=== PATIENT | male | born 1970 | race African-American/Black ===

== ENCOUNTER 2020-06-27 14:22 | Emergency (ER) | payer OTHER ==
[~2020-06-27] VITALS: Ht 190.5 cm; Wt 112.0 kg
[2020-06-27 14:26] VITALS: BP 161/76
[2020-06-27] MEDS ORDERED: IBUPROFEN 800MG TABLET PO ONE (14:30)
[2020-06-27] MEDS ORDERED: TETANUS, DIPHTHERIA, PERTUSSIS VAC/PF 0.5ML (>7YR OLD) IM ONE (14:45)
[2020-06-27] MEDS ORDERED: BACITRACIN ZINC OINT UDPKT TOP ONE (14:45)
[2020-06-27] MEDS ORDERED: LIDOCAINE HCL/PF 1% 10 MG/ML 5ML VIAL IJ ONE (14:45)
== END 2020-06-27 17:45 | disposition home or self-care (01) ==
LOC: ER 14:22
DX: S91.201A Unspecified open wound of right great toe with damage to nail, initial encounter (principal); W22.8XXA Striking against or struck by other objects, initial encounter; Y93.B9 Activity, other involving muscle strengthening exercises; Y92.89 Other specified places as the place of occurrence of the external cause; Z23 Encounter for immunization
CPT/HCPCS: 11730; 73630; 90471; 90715; 99284; J3490; Z7610

== ENCOUNTER 2020-07-25 10:12 | Emergency (ER) | payer OTHER ==
[~2020-07-25] VITALS: Ht 190.5 cm; Wt 114.0 kg
[2020-07-25 10:15] VITALS: BP 153/58
[2020-07-25] MEDS: IBUPROFEN 800MG TABLET PO ONE (10:30)
== END 2020-07-25 12:04 | disposition home or self-care (01) ==
LOC: ER 10:12
DX: M54.89 Other dorsalgia (principal); M25.572 Pain in left ankle and joints of left foot; M25.562 Pain in left knee; M79.89 Other specified soft tissue disorders; Z98.890 Other specified postprocedural states
CPT/HCPCS: 73562; 73610; 93971; 99284

== ENCOUNTER 2025-05-13 09:19 | Emergency (ER) | payer OTHER ==
[~2025-05-13] VITALS: Ht 190.5 cm; Wt 109.0 kg
[2025-05-13 09:33] VITALS: O2SAT 100
[2025-05-13 10:44] LABS: HEMATOCRIT. 46.9 % (42.0-52.0); HEMOGLOBIN. 14.9 g/dL (14.0-18.0); MEAN PLATELET VOLUME 9.5 fl (7.4-10.4); PLATELET 167 x1000/uL (130-400); RED BLOOD CELL COUNT 5.55 mill/uL (4.7-6.1); RED CELL DISTRIBUTION WIDTH 13.8 % (11.6-14.6)
[2025-05-13 11:00] LABS: CREATININE 1.3 mg/dL (0.6-1.3); UREA NITROGEN BLOOD 8 mg/dL (9-23)
[2025-05-13 11:02] LABS: ASPARTATE AMINOTRANSFERASE 16 IU/L (<34); BILIRUBIN DIRECT 0.2 mg/dL (<=3.0); BILIRUBIN TOTAL 0.8 mg/dL (0.1-1.0); PROTEIN TOTAL 6.9 g/dL (6.0-8.3)
[2025-05-13] MEDS ORDERED: METH4TAB95 MT (11:41)
[2025-05-13 12:01] VITALS: BP 124/76; PULSE 89; RESP 18; TEMP 37.8; O2SAT 99
[2025-05-13 12:32] LABS: PLATELET ESTIMATE NORMAL
[2025-05-13 12:36] LABS: BAND% 3.0 % (1.0-6.0); EOSINOPHILS % MANUAL 1.0 % (0.0-5.0); LYMPHOCYTES % MANUAL 12.0 % (20.0-50.0); MONOCYTES % MANUAL 21.0 % (2.0-8.0); NEUTROPHILS % MANUAL 63.0 % (45.0-75.0)
[2025-05-13 12:54] LABS: CLARITY URINE CLEAR (CLEAR); COLOR URINE YELLOW (YELLOW); GLUCOSE URINE NEGATIVE (NEGATIVE); KETONES URINE TRACE (NEGATIVE); LEUKOCYTE ESTERASE URINE NEGATIVE (NEGATIVE); NITRITE URINE NEGATIVE (NEGATIVE); OCCULT BLOOD URINE TRACE (NEGATIVE); PH URINE 5.5 (4.5-8.0); PROTEIN URINE NEGATIVE (NEGATIVE); SPECIFIC GRAVITY URINE 1.024 (1.005-1.030); UROBILINOGEN URINE 1.0 E.U./dL (0.2-1.0)
[2025-05-13 13:10] LABS: MUCUS URINE TRACE /lpf (NONE/TRACE); SQUAMOUS EPITHELIAL CELL URINE RARE /lpf (RARE/1+)
[2025-05-13 13:14] LABS: BACTERIA URINE NONE SEEN
[2025-05-13 13:15] LABS: WBC URINE 0-2 /hpf (0-2)
== END 2025-05-13 12:03 | disposition home or self-care (01) ==
LOC: ER 09:19
DX: B34.9 Viral infection, unspecified (principal); I10 Essential (primary) hypertension
CPT/HCPCS: 36415; 71045; 80048; 80076; 81003; 83735; 85025; 99284